=== PATIENT | female | born 1940 | race African-American/Black ===

== ENCOUNTER 2022-02-07 11:28 | Day surgery (SDC) | payer OTHER ==
[2022-02-07] MEDS ORDERED: PROPOFOL 20 ML ONE ×2 (13:08)
[2022-02-07 14:17] VITALS: TEMP 98
[2022-02-07 14:21] VITALS: BP 118/70; PULSE 62
== END 2022-02-07 14:15 | disposition home or self-care (01) ==
LOC: FASU-ENDO 11:28
PROVIDERS: ATTEND Internal Medicine Gastroenterology
PROC: 0DB68ZX Excision of Stomach, Via Natural or Artificial Opening Endoscopic, Diagnostic (ICD-10-PCS; 2022-02-07)
PROC: 0D748DZ Dilation of Esophagogastric Junction with Intraluminal Device, Via Natural or Artificial Opening Endoscopic (ICD-10-PCS; 2022-02-07)
PROC: 0DB98ZX Excision of Duodenum, Via Natural or Artificial Opening Endoscopic, Diagnostic (ICD-10-PCS; principal; 2022-02-07 13:14)
DX: K29.50 Unspecified chronic gastritis without bleeding (principal); K44.9 Diaphragmatic hernia without obstruction or gangrene; R13.10 Dysphagia, unspecified
CPT/HCPCS: 88305-TC; 88342-TC